=== PATIENT | female | born 1985 | race African-American/Black ===

== ENCOUNTER 2021-05-31 11:12 | Outpatient (REF) | payer OTHER, SELFPAY ==
--- NOTE | ~2021-05-31 | US_ITS ---
EXAMINATION: US PELVIS CLINICAL INFORMATION: Uterine fibroid COMPARISON: Previous pelvic ultrasound April 2015 and January 2015 TECHNIQUE: Ultrasound of the pelvis is performed using both transabdominal and transvaginal transducers along with Doppler. Transvaginal imaging is performed due to inadequate visualization transabdominally. FINDINGS: The uterus is anteverted and measures 9.4 x 3.5 x 5.5 cm in dimension. There is a hypoechoic solid right adnexal mass that is new or increased in size from prior exams. This measures 7.3 x 6.3 x 7.2 cm in dimension. This is increased in size from 1.8 x 2.2 x 2.4 cm on previous pelvic ultrasound January 2015 seen and was not seen on 2015 exam. This may represent an exophytic uterine fibroid. The right ovary is identified separate from this on transvaginal imaging and measures 2.1 x 1.7 x 2.4 cm. Endometrial thickness is normal measuring 0.7 cm. The left ovary is seen on transabdominal images only and is normal-appearing. The left ovary measures 2.7 x 2.1 x 2.4 cm. There is no fluid in the pelvis. US/US pelvic and transvaginal IMPRESSION: Increasing solid hypoechoic right adnexal mass, question representing an exophytic uterine fibroid. This measures 7.3 x 6.3 x 7.2 cm and is increased in size from 1.8 x 2.2 x 2.4 cm January 2015 pelvic ultrasound. Follow-up pelvic MRI for better evaluation recommended.
== END 2021-05-31 11:13 | disposition home or self-care (01) ==
LOC: HO.US 11:12
PROVIDERS: PCP Family Medicine; Visit Provider Advanced Practice Midwife
DX: D25.9 Leiomyoma of uterus, unspecified (principal)
CPT/HCPCS: 76830; 76856

== ENCOUNTER 2021-06-13 11:19 | Outpatient (REF) | payer OTHER, SELFPAY ==
--- NOTE | ~2021-06-13 | MR_ITS ---
EXAMINATION: MR PELVIS WITHOUT AND WITH CONTRAST CLINICAL INFORMATION: Leiomyoma of uterus COMPARISON: Previous pelvic ultrasounds most recent 05/31/2021 TECHNIQUE: Sagittal, axial, and coronal sequences through the pelvis with and without contrast. Patient received 10 mL intravenous Gadavist contrast. FINDINGS: The uterus measures 9.5 x 3.4 x 4.6 cm in sagittal, AP, and transverse dimension. There is a 7.0 x 6.7 x 7.5 cm lesion in the central pelvis. This probably represents a subserosal or pedunculated fibroid arising from the right anterior uterine body.. This is low signal on T1 weighted sequences. This is predominantly low signal on T2-weighted sequences with some central T2 signal and demonstrates homogeneous enhancement. This displaces the uterus to the left. No other focal uterine lesion is seen. The endometrium does not appear thickened measuring 3 mm. The junctional zone is normal. The cervix is normal. The right ovary is displaced superiorly by the fibroid. The right ovary measures approximately 3.0 x 3.0 cm and contains a 2.0 cm cyst. The left ovary is not well visualized. No ascites is seen. Bladder is empty. No adenopathy is seen. Vascular structures are normal. Bony structures are normal. MR/MR pelvis wo/w con IMPRESSION: 7.0 cm pelvic mass probably representing a subserosal or pedunculated fibroid arising from the right anterior uterine body. This displaces the uterus to the left. The right ovary is seen separate from this superiorly and is normal-appearing. The left ovary is not well seen.
== END 2021-06-13 11:20 | disposition home or self-care (01) ==
LOC: HO.MRI 11:19
PROVIDERS: Visit Provider Advanced Practice Midwife
DX: D25.9 Leiomyoma of uterus, unspecified (principal)
CPT/HCPCS: 72197; A9585